=== PATIENT | male | born 1970 | race Caucasian/White ===

== ENCOUNTER 2020-07-10 18:38 | Emergency (ER) | payer OTHER ==
[2020-07-10] MEDS ORDERED: Sodium Chloride 0.9% 10 ML Syringe FLUSH PRN (19:27)
--- NOTE | 2020-07-10 19:42 | EDM.PDOC ---
ED HPI GENERAL MEDICAL PROBLEM - General Chief Complaint: General Stated Complaint: SOB/HAS A HISTORY HEART PROBLEMS Time Seen by Provider: 07/10/20 19:07 Source of Information: Reports: Patient History Limitations: Reports: No Limitations - History of Present Illness INITIAL COMMENTS - FREE TEXT/NARRATIVE: The patient presents with shortness of breath, headache, body aches, and fever. This all started about 4 days ago. He also has a slight cough. He has lost his sense of smell and taste. He has no chest pain. He has no appetite. He has generalized weakness. He has a history of RI back in 2019. He has no swelling in his legs. He has no abdominal pain, nausea, vomiting or diarrhea. He has not been tested for COVID 19 and no one he has been around as far as he knows has been sick. He does feel lightheaded at times. Onset: Gradual Duration: Day(s): (4) Location: Reports: Head, Generalized Quality: Reports: Ache Severity: Moderate Improves with: Reports: None Worsens with: Reports: None Associated Symptoms: Reports: Cough, Fever/Chills, Headaches, Shortness of Breath. Denies: Chest Pain, Nausea/Vomiting Headache Pain Score (Numeric/FACES): 7 - Related Data Allergies Allergy/AdvReac Type Severity Reaction Status Date / Time Influenza Virus Vaccines AdvReac Unknown Other Verified 07/10/20 21:32 Home Meds: Home Meds Aspirin [Aspirin EC] 81 mg PO DAILY 07/10/20 [History] Candesartan [Atacand] 4 mg PO DAILY 07/10/20 [History] Ezetimibe 10 mg PO DAILY 07/10/20 [History] Ticagrelor [Brilinta] 60 mg PO BID 07/10/20 [History] dexAMETHasone [Dexamethasone] 6 mg PO DAILY #9 tab 07/10/20 [Rx] Past Medical History HEENT History: Reports: Impaired Vision Cardiovascular History: Reports: High Cholesterol, Hypertension, [place] Musculoskeletal History: Reports: Fracture Neurological History: Reports: Other (See Below) Other Neuro History: Guillion Colona - Past Surgical History Cardiovascular Surgical History: Reports: Other (See Below) Other Cardiovascular Surgeries/Procedures: 3 stents placed in May 2018 Musculoskeletal Surgical History: Reports: Arthroscopic Knee, Other (See Below) Other Musculoskeletal Surgeries/Procedures:: Pinky Surgery Social & Family History - Tobacco Use Tobacco Use Status *Q: Never Tobacco User - Caffeine Use Caffeine Use: Reports: Coffee - Recreational Drug Use Recreational Drug Use: No ED ROS GENERAL - Review of Systems Review Of Systems: See Below Constitutional: Reports: Fever, Chills, Malaise, Weakness, Fatigue HEENT: Reports: Other (lost sense of smell and taste) Respiratory: Reports: Shortness of Breath, Cough Cardiovascular: Reports: Lightheadedness. Denies: Chest Pain Endocrine: Reports: Fatigue GI/Abdominal: Reports: No Symptoms : Reports: No Symptoms Musculoskeletal: Reports: Muscle Pain ED EXAM, GENERAL - Physical Exam Exam: See Below Exam Limited By: No Limitations General Appearance: Alert, No Apparent Distress Ears: Normal External Exam Nose: Normal Inspection Head: Atraumatic, Normocephalic Neck: Normal Inspection Respiratory/Chest: No Respiratory Distress, Lungs Clear, Normal Breath Sounds Cardiovascular: Regular Rate, Rhythm, No Edema, No Murmur GI/Abdominal: Soft, Non-Tender, No Organomegaly, No Mass Back Exam: Normal Inspection Extremities: Normal Inspection #1 Interpretation EKG Date: 07/10/20 Time: 19:06 Rhythm: NSR Rate (Beats/Min): 77 [place]: Normal P-Wave: Present QRS: Normal ST-T: Normal QT: Normal EKG Interpretation Comments: Q waves in the inferior leads Course - Vital Signs Last Recorded V/S: Last Vital Signs Temp 97.6 F 07/10/20 19:13 Pulse 58 L 07/10/20 23:15 Resp 16 07/10/20 23:15 BP 103/73 07/10/20 23:15 Pulse Ox 93 L 07/10/20 23:15 - Orders/Labs/Meds Orders: Active Orders 24 hr Category Date Time Status Cardiac Monitoring [RC] . DIRECTED Care 07/10/20 19:27 Active EKG 12 Lead [EKG Documentation Completion] [RC] ROUTINE Care 07/10/20 19:06 A ctive Oxygen Therapy [RC] PRN Care 07/10/20 19:27 Active Peripheral IV Care [RC] . DIRECTED Care 07/10/20 19:27 Active Vital Signs [RC] Q15M Care 07/10/20 20:53 Active Chest 1V Frontal [CR] Stat Exams 07/10/20 19:27 Taken EPINEPHrine [Adrenalin] Med 07/10/20 20:53 Active 0.3 mg IM ONETIME PRN Famotidine [Pepcid] Med 07/10/20 20:53 Active 20 mg IVPUSH ONETIME PRN Sodium Chloride 0.9% [Saline Flush] Med 07/10/20 19:27 Active 10 ml FLUSH ASDIRECTED PRN Sodium Chloride 0.9% [Saline Flush] Med 07/10/20 21:00 Active 30 ml FLUSH ASDIRECTED diphenhydrAMINE [Benadryl] Med 07/10/20 20:53 Active 50 mg IVPUSH ONETIME PRN methylPREDNISolone Sod Succ [Solu-MEDROL] Med 07/10/20 20:53 Active 125 mg IVPUSH ONETIME PRN Peripheral IV Insertion Adult [OM.PC] Stat Oth 07/10/20 19:27 Ordered Medication Orders Diphenhydramine HCl (Diphenhydramine 50 Mg/Ml Sdv) 50 mg IVPUSH ONETIME PRN PRN Reason: hypersensitivity reaction Epinephrine HCl (Epinephrine 1 Mg/Ml Sdv) 0.3 mg IM ONETIME PRN PRN Reason: hypersensitivity reaction Famotidine (Famotidine 20 Mg/2 Ml Sdv) 20 mg IVPUSH ONETIME PRN PRN Reason: hypersensitivity reaction Methylprednisolone Sodium Succinate (Methylprednisolone Sodium Succinate 125 Mg/2 Ml Sdv) 125 mg IVPUSH ONETIME PRN PRN Reason: hypersensitivity reaction Sodium Chloride (Sodium Chloride 0.9% 10 Ml Syringe) 10 ml FLUSH ASDIRECTED PRN PRN Reason: Keep Vein Open Last Admin: 07/10/20 19:46 Dose: 10 ml Documented by: DAVID Sodium Chloride (Sodium Chloride 0.9% 10 Ml Syringe) 30 ml FLUSH ASDIRECTED [facility] Labs: Laboratory Tests 07/10/20 07/10/20 07/10/20 Range/Units 19:25 19:25 19:25 WBC 4.53 (4.23-9.07) K/mm3 RBC 4.90 (4.63-6.08) M/mm3 Hgb 14.0 (13.7-17.5) gm/dl Hct 41.9 (40.1-51.0) % MCV 85.5 (79.0-92.2) fl MCH 28.6 (25.7-32.2) pg MCHC 33.4 (32.2-35.5) g/dl RDW Std Deviation 43.0 (35.1-43.9) fL Plt Count 205 (163-337) K/mm3 MPV 8.8 L (9.4-12.3) fl Neut % (Auto) 63.6 (34.0-67.9) % Lymph % (Auto) 26.7 (21.8-53.1) % [place] % (Auto) 9.1 (5.3-12.2) % Eos % (Auto) 0.2 L (0.8-7.0) Baso % (Auto) 0.2 (0.1-1.2) % Neut # (Auto) 2.88 (1.78-5.38) K/mm3 Lymph # (Auto) 1.21 L (1.32-3.57) K/mm3 [place] # (Auto) 0.41 (0.30-0.82) K/mm3 Eos # (Auto) 0.01 L (0.04-0.54) K/mm3 Baso # (Auto) 0.01 (0.01-0.08) K/mm3 PT 10.3 (9.7-12.0) SECONDS INR 0.96 D-Dimer, Quantitative 0.38 (0.19-0.50) mg/L Sodium 139 (136-145) mEq/L Potassium 3.8 (3.5-5.1) mEq/L Chloride 103 (98-107) mEq/L Carbon Dioxide 26 (21-32) mEq/L Anion Gap 13.8 (5-15) BUN 17 (7-18) mg/dL Creatinine 1.0 (0.7-1.3) mg/dL Est Cr Clr Drug Dosing 100.47 mL/min Estimated GFR (MDRD) > 60 (>60) mL/min BUN/Creatinine Ratio 17.0 (14-18) Glucose 110 H (70-99) mg/dL Calcium 7.7 L (8.5-10.1) mg/dL Ferritin (26-388) ng/ml Total Bilirubin 0.3 (0.2-1.0) mg/dL AST 28 (15-37) U/L ALT 43 (16-63) U/L Alkaline Phosphatase 77 (46-116) U/L Lactate Dehydrogenase 276 H (85-227) U/L Troponin I < 0.017 (0.00-0.056) ng/mL C-Reactive Protein 4.2 H* (<1.0) mg/dL NT-Pro-B Natriuret Pep (0-125) pg/mL Total Protein 7.2 (6.4-8.2) g/dl Albumin 3.3 L (3.4-5.0) g/dl Globulin 3.9 gm/dL Albumin/Globulin Ratio 0.9 L (1-2) SARS-CoV-2 RNA (ABDULAZIZ) (NEGATIVE) 07/10/20 07/10/20 07/10/20 Range/Units 19:25 19:25 19:30 WBC (4.23-9.07) K/mm3 RBC (4.63-6.08) M/mm3 Hgb (13.7-17.5) gm/dl Hct (40.1-51.0) % MCV (79.0-92.2) fl MCH (25.7-32.2) pg MCHC (32.2-35.5) g/dl RDW Std Deviation (35.1-43.9) fL Plt Count (163-337) K/mm3 MPV (9.4-12.3) fl Neut % (Auto) (34.0-67.9) % Lymph % (Auto) (21.8-53.1) % [place] % (Auto) (5.3-12.2) % Eos % (Auto) (0.8-7.0) Baso % (Auto) (0.1-1.2) % Neut # (Auto) (1.78-5.38) K/mm3 Lymph # (Auto) (1.32-3.57) K/mm3 [place] # (Auto) (0.30-0.82) K/mm3 Eos # (Auto) (0.04-0.54) K/mm3 Baso # (Auto) (0.01-0.08) K/mm3 PT (9.7-12.0) SECONDS INR D-Dimer, Quantitative (0.19-0.50) mg/L Sodium (136-145) mEq/L Potassium (3.5-5.1) mEq/L Chloride (98-107) mEq/L Carbon Dioxide (21-32) mEq/L Anion Gap (5-15) BUN (7-18) mg/dL Creatinine (0.7-1.3) mg/dL Est Cr Clr Drug Dosing mL/min Estimated GFR (MDRD) (>60) mL/min BUN/Creatinine Ratio (14-18) Glucose (70-99) mg/dL Calcium (8.5-10.1) mg/dL Ferritin 223 (26-388) ng/ml Total Bilirubin (0.2-1.0) mg/dL AST (15-37) U/L ALT (16-63) U/L Alkaline Phosphatase (46-116) U/L Lactate Dehydrogenase (85-227) U/L Troponin I (0.00-0.056) ng/mL C-Reactive Protein (<1.0) mg/dL NT-Pro-B Natriuret Pep 103 (0-125) pg/mL Total Protein (6.4-8.2) g/dl Albumin (3.4-5.0) g/dl Globulin gm/dL Albumin/Globulin Ratio (1-2) SARS-CoV-2 RNA (ABDULAZIZ) Positive H (NEGATIVE) Meds: Medications Generic Name Dose Route Start Last Admin Trade Name Freq PRN Reason Stop Dose Admin Diphenhydramine HCl 50 mg 07/10/20 20:53 Diphenhydramine 50 Mg/Ml Sdv IVPUSH ONETIME PRN hypersensitivity reaction Epinephrine HCl 0.3 mg 07/10/20 20:53 Epinephrine 1 Mg/Ml Sdv IM ONETIME PRN hypersensitivity reaction Famotidine 20 mg 07/10/20 20:53 Famotidine 20 Mg/2 Ml Sdv IVPUSH ONETIME PRN hypersensitivity reaction Methylprednisolone Sodium Succinate 125 mg 07/10/20 20:53 Methylprednisolone Sodium Succinate 125 Mg/2 Ml Sdv IVPUSH ONETIME PRN hypersensitivity reaction Sodium Chloride 10 ml 07/10/20 19:27 07/10/20 19:46 Sodium Chloride 0.9% 10 Ml Syringe FLUSH 10 ml ASDIRECTED PRN Administration Keep Vein Open Sodium Chloride 30 ml 07/10/20 21:00 Sodium Chloride 0.9% 10 Ml Syringe FLUSH ASDIRECTED VIVIAN Discontinued Medications Generic Name Dose Route Start Last Admin Trade Name Freq PRN Reason Stop Dose Admin Dexamethasone 6 mg 07/10/20 20:53 07/10/20 21:14 Dexamethasone 4 Mg/Ml Sdv IVPUSH 07/10/20 20:54 6 mg ONETIME ONE Administration Sodium Chloride 1,000 mls @ 1,000 mls/hr 07/10/20 20:53 07/10/20 21:13 Normal Saline IV 07/10/20 21:52 1,000 mls/hr ONETIME ONE Administration Bamlanivimab 700 mg/ 310 mls @ 310 mls/hr 07/10/20 20:53 07/10/20 21:59 Etesevimab 1,400 mg/ Sodium IV 07/10/20 21:52 310 mls/hr Chloride ONETIME ONE Administration Ketorolac Tromethamine 30 mg 07/10/20 20:54 07/10/20 21:16 Ketorolac 30 Mg/Ml Sdv IVPUSH 07/10/20 20:55 30 mg ONETIME ONE Administration - Re-Assessments/Exams Free Text/Narrative Re-Assessment/Exam: 07/10/20 19:41 I ordered oxygen as needed, CXR, EKG, labs and COVID 19 test. His EKG shows a N SR with no acute changes. 07/10/20 23:40 His CXR looked good. His CBC and CMP looked good. His D-dimer was negative. His troponin was negative. His LDH was elevated at 276. His CRP was elevated a t 4.2. He is a candidate for the bamlanivimab and etesevimab. I talked to the patient about those options. He still had a headache so I ordered toradol 30mg IV. I spoke with the patient to provide information about bamlanivimab/etesevimab treatment. I offered them the Patient and Caregiver EUA Bamlanivimab Fact Sheet to read and review. I stated the drug has been approved by an emergency use authorization (EUA} process and has not fully been FDA reviewed or approved. The patient meets the EUA requirements. I discussed there are other potential treatment options that are currently not FDA approved to treat COVID 19. Offered opportunity to ask questions and all questions were answered. The patient voiced understanding and agreed to proceed with treatment. The patient agreed to the infusion. I ordered that and some dexamethasone 6mg IV. Departure - Departure Time of Disposition: 23:45 Disposition: Home, Self-Care 01 Condition: Good Clinical Impression: COVID-19 - Discharge Information *PRESCRIPTION DRUG MONITORING PROGRAM REVIEWED*: Not Applicable *COPY OF PRESCRIPTION DRUG MONITORING REPORT IN PATIENT SANJEEV: Not Applicable Prescriptions: dexAMETHasone [Dexamethasone] 6 mg PO DAILY #9 tab Referrals: PCP,None [Primary Care Provider] - Forms: ED Department Discharge Additional Instructions: Take the dexamethasone 1.5 pills daily for 9 days. Take tylenol or motrin for any fever or pain. Follow up with your doctor within a week. Please return if you are worse. Sepsis Event Note (ED) - Evaluation Sepsis Screening Result: No Definite Risk - Focused Exam Vital Signs: Vital Signs Temp Pulse Resp BP Pulse Ox 07/10/20 23:15 58 L 16 103/73 93 L 07/10/20 23:00 61 16 110/71 95 07/10/20 22:45 65 18 104/66 94 L 07/10/20 22:30 64 18 109/69 94 L 07/10/20 22:15 66 16 107/70 95 07/10/20 22:00 64 16 110/70 95 07/10/20 21:45 68 16 119/77 94 L 07/10/20 21:30 70 16 119/84 95 07/10/20 21:15 68 16 119/94 H 98 07/10/20 21:08 70 16 118/67 96 07/10/20 20:53 65 18 107/70 94 L 07/10/20 19:13 97.6 F 77 16 122/75 96 - My Orders Last 24 Hours: My Active Orders 07/10/20 19:06 EKG 12 Lead [EKG Documentation Completion] [RC] ROUTINE 07/10/20 19:27 Cardiac Monitoring [RC] . DIRECTED Oxygen Therapy [RC] PRN Peripheral IV Care [RC] . DIRECTED Chest 1V Frontal [CR] Stat Sodium Chloride 0.9% [Saline Flush] 10 ml FLUSH ASDIRECTED PRN Peripheral IV Insertion Adult [OM.PC] Stat 07/10/20 20:53 Vital Signs [RC] Q15M EPINEPHrine [Adrenalin] 0.3 mg IM ONETIME PRN Famotidine [Pepcid] 20 mg IVPUSH ONETIME PRN diphenhydrAMINE [Benadryl] 50 mg IVPUSH ONETIME PRN methylPREDNISolone Sod Succ [Solu-MEDROL] 125 mg IVPUSH ONETIME PRN 07/10/20 21:00 Sodium Chloride 0.9% [Saline Flush] 30 ml FLUSH ASDIRECTED - Assessment/Plan Last 24 Hours: My Active Orders 07/10/20 19:06 EKG 12 Lead [EKG Documentation Completion] [RC] ROUTINE 07/10/20 19:27 Cardiac Monitoring [RC] . DIRECTED Oxygen Therapy [RC] PRN Peripheral IV Care [RC] . DIRECTED Chest 1V Frontal [CR] Stat Sodium Chloride 0.9% [Saline Flush] 10 ml FLUSH ASDIRECTED PRN Peripheral IV Insertion Adult [OM.PC] Stat 07/10/20 20:53 Vital Signs [RC] Q15M EPINEPHrine [Adrenalin] 0.3 mg IM ONETIME PRN Famotidine [Pepcid] 20 mg IVPUSH ONETIME PRN diphenhydrAMINE [Benadryl] 50 mg IVPUSH ONETIME PRN methylPREDNISolone Sod Succ [Solu-MEDROL] 125 mg IVPUSH ONETIME PRN 07/10/20 21:00 Sodium Chloride 0.9% [Saline Flush] 30 ml FLUSH ASDIRECTED
[2020-07-10] MEDS ORDERED: Famotidine 20 MG/2 ML SDV IVPUSH PRN (20:53)
[2020-07-10] MEDS ORDERED: diphenhydrAMINE 50 MG/ML SDV IVPUSH PRN (20:53)
[2020-07-10] MEDS ORDERED: EPINEPHrine 1 MG/ML SDV IM PRN (20:53)
[2020-07-10] MEDS ORDERED: methylPREDNISolone Sodium Succinate 125 MG/2 ML SDV IVPUSH PRN (20:53)
[2020-07-10] MEDS ORDERED: Dexamethasone 4 MG/ML SDV IVPUSH ONE (20:53)
[2020-07-10] MEDS ORDERED: Sodium Chloride 0.9% 1,000 ML IV ONE (20:53)
[2020-07-10] MEDS ORDERED: Ketorolac 30 MG/ML SDV IVPUSH ONE (20:54)
[2020-07-10] MEDS ORDERED: Sodium Chloride 0.9% 10 ML Syringe FLUSH SCH (21:00)
--- NOTE | 2020-07-14 13:36 | CR ---
Chest: Portable view of the chest was obtained. Comparison: No prior chest imaging is available. Heart size and mediastinum are normal. Lungs are clear with no acute parenchymal change. Bony structure shows nothing acute. Impression: 1. Nothing acute is seen on portable chest x-ray. Diagnostic code #1
== END 2020-07-11 00:10 | disposition home or self-care (01) ==
LOC: JD.ED 18:38
DX: U07.1 COVID-19 (principal); I10 Essential (primary) hypertension; I25.2 Old myocardial infarction; Z79.82 Long term (current) use of aspirin; Z79.02 Long term (current) use of antithrombotics/antiplatelets; Z88.7 Allergy status to serum and vaccine
CPT/HCPCS: 36415; 71045; 80053; 82728; 83615; 83880; 84484; 85025; 85379; 85610; 86140; 87635; 93005; 96374; 96375; 99285; J1100; J1885; J7030; J7050; M0245; Q0245; 93010; 99284; U0002

== ENCOUNTER 2021-02-08 00:41 | Emergency (ER) | payer OTHER ==
[2021-02-08] MEDS ORDERED: Sodium Chloride 0.9% 10 ML Syringe FLUSH PRN (00:48)
--- NOTE | 2021-02-08 06:17 | EDM.PDOC ---
ED HPI GENERAL MEDICAL PROBLEM - General Chief Complaint: Chest Pain Stated Complaint: [facility] Time Seen by Provider: 02/08/21 05:51 Source of Information: Reports: Patient, Family (Daughter) History Limitations: Reports: No Limitations - History of Present Illness INITIAL COMMENTS - FREE TEXT/NARRATIVE: Mr. Díaz is a very pleasant 50-year-old gentleman who now presents to the ED by EMS with a complaint of retrosternal tightness that began around 23:10 after moving a large desk up some stairs around 23:00. He states that the sensation is a pain, not a discomfort, and he has not identified any modifiers. He states that he took 2 sublingual nitroglycerin around 2340, which did not provide immediate relief. The pain resolved just after arrival to the ED, about 35 minutes later. When he experienced the pain, he felt diaphoretic, but denies having associated dyspnea, nausea, or sense of impending doom. The patient has a history of coronary artery disease, status post a single GA on 06/13/2018. When that occurred, he states that he felt a tightness in both of his shoulders and on both sides of his neck, and later felt a tightness in his chest. He had associated nausea and diaphoresis, but no dyspnea. He acknowledges that carine's symptoms are different than the symptoms he experienced when he had an GA. The patient's last cardiac stress test was in 2019, which he passed. At triage, the patient was found to be hemodynamically stable, afebrile, saturating 93% on room air. He appears to be comfortable, no acute distress. Prior to the onset of tonight's pain, the patient denies having a recent fever, chills, sore throat, ear pain, nasal or sinus congestion, cough, dyspnea, chest pain, palpitations, nausea, vomiting, constipation, diarrhea, abdominal pain, urinary symptoms, recent weight gain or weight loss, recent bloody bowel movements or black bowel movements, recent joint aches, headaches, or rashes. The patient's PCP is Mary Page, in [place]. His Door Hanger is Dr. Edward Stewart. He has received 2 Moderna COVID vaccinations, although no influenza vaccination this season. Chest Pain Score (Numeric/FACES): 3 - Related Data Allergies Allergy/AdvReac Type Severity Reaction Status Date / Time Influenza Virus Vaccines AdvReac Unknown Other Verified 07/10/20 21:32 Home Meds: Home Meds Aspirin [Aspirin EC] 81 mg PO DAILY 07/10/20 [History] Candesartan [Atacand] 4 mg PO DAILY 07/10/20 [History] Ezetimibe 10 mg PO DAILY 07/10/20 [History] Ticagrelor [Brilinta] 60 mg PO BID 07/10/20 [History] dexAMETHasone [Dexamethasone] 6 mg PO DAILY #9 tab 07/10/20 [Rx] Past Medical History HEENT History: Reports: Impaired Vision Cardiovascular History: Reports: CAD, High Cholesterol, Hypertension, GA (x 1, 06/13/2018) Musculoskeletal History: Reports: Fracture 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) - Infectious Disease History Infectious Disease History: Reports: Novel Coronavirus (dx'd 07/10/2020) - Past Surgical History Cardiovascular Surgical History: Reports: Coronary Artery Stent (x 3 (2 + 1) May 2018), Other (See Below) (2 coronary angiograms May 2018) Musculoskeletal Surgical History: Reports: Arthroscopic Knee (right), Other (See Below) (Right 5th finger reattachment) Social & Family History - Tobacco Use Tobacco Use Status *Q: Never Tobacco User - Caffeine Use Caffeine Use: Reports: Coffee - Alcohol Use Alcohol Use History: Yes Date/Time of Last Drink Comment: None since 2016 - Recreational Drug Use Recreational Drug Use: No - Living Situation & Occupation Living situation: Reports: , with Spouse, with Family (4 kids) Occupation: Employed ([employer]) ED ROS GENERAL - Review of Systems Review Of Systems: Comprehensive ROS is negative, except as noted in HPI. ED EXAM, GENERAL - Physical Exam Exam: See Below Exam Limited By: No Limitations General Appearance: Alert, WD/WN, No Apparent Distress Eye Exam: Bilateral Eye: EOMI, Normal Inspection Ears: Normal External Exam, Hearing Grossly Normal Nose: Normal Inspection Throat/Mouth: Normal Inspection, Normal Lips, Normal Voice, No Airway Compromise Head: Atraumatic, Normocephalic Neck: Normal Inspection, Full Range of Motion Respiratory/Chest: No Respiratory Distress, Lungs Clear, Normal Breath Sounds, No Accessory Muscle Use, Other (Reproducible tenderness to palpation of the sternum. Pain is also reproduced with having the patient press his hands together with outstretched arms low in front of him.) Cardiovascular: Normal Peripheral Pulses, Regular Rate, Rhythm, No Edema, No Gallop, No JVD, No Murmur, No Rub Peripheral Pulses: 3+: Radial (L), Radial (R) GI/Abdominal: Normal Bowel Sounds, Soft, Non-Tender, No Organomegaly, No Distention, No Abnormal Bruit, No Mass Back Exam: Normal Inspection, Full Range of Motion, NT Extremities: Normal Inspection, Normal Range of Motion, No Pedal Edema, Normal Capillary Refill Neurological: Alert, Oriented, Normal Cognition, No Motor/Sensory Deficits Psychiatric: Normal Affect Skin Exam: Warm, Dry, Intact, Normal Color, No Rash #1 Interpretation EKG Date: 02/08/21 Time: 00:56 Rhythm: NSR Rate (Beats/Min): 64 [place]: 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) P-Wave: Present QRS: Normal ST-T: Normal QT: Normal Comparison: No Change (07/10/2020) Course - Vital Signs Last Recorded V/S: Last Vital Signs Temp 36.5 C 02/08/21 08:24 Pulse 65 02/08/21 00:56 Resp 18 02/08/21 08:24 BP 109/76 02/08/21 08:24 Pulse Ox 93 L 02/08/21 00:56 - Orders/Labs/Meds Labs: Laboratory Tests 02/08/21 02/08/21 02/08/21 Range/Units 00:49 00:49 00:49 WBC 8.37 (4.23-9.07) K/mm3 RBC 4.99 (4.63-6.08) M/mm3 Hgb 14.4 (13.7-17.5) gm/dl Hct 43.7 (40.1-51.0) % MCV 87.6 (79.0-92.2) fl MCH 28.9 (25.7-32.2) pg MCHC 33.0 (32.2-35.5) g/dl RDW Std Deviation 41.9 (35.1-43.9) fL Plt Count 247 (163-337) K/mm3 MPV 8.8 L (9.4-12.3) fl Neut % (Auto) 73.6 H (34.0-67.9) % Lymph % (Auto) 17.7 L (21.8-53.1) % [place] % (Auto) 7.4 (5.3-12.2) % Eos % (Auto) 1.1 (0.8-7.0) Baso % (Auto) 0.1 (0.1-1.2) % Neut # (Auto) 6.16 H (1.78-5.38) K/mm3 Lymph # (Auto) 1.48 (1.32-3.57) K/mm3 [place] # (Auto) 0.62 (0.30-0.82) K/mm3 Eos # (Auto) 0.09 (0.04-0.54) K/mm3 Baso # (Auto) 0.01 (0.01-0.08) K/mm3 PT 10.5 (9.7-12.0) SECONDS INR 0.94 D-Dimer, Quantitative < 0.19 L (0.19-0.50) mg/L Sodium 139 (136-145) mEq/L Potassium 4.0 (3.5-5.1) mEq/L Chloride 105 (98-107) mEq/L Carbon Dioxide 26 (21-32) mEq/L Anion Gap 12.0 (5-15) BUN 18 (7-18) mg/dL Creatinine 1.0 (0.7-1.3) mg/dL Est Cr Clr Drug Dosing 100.47 mL/min Estimated GFR (MDRD) > 60 (>60) mL/min BUN/Creatinine Ratio 18.0 (14-18) Glucose 117 H (70-99) mg/dL Calcium 8.3 L (8.5-10.1) mg/dL Magnesium 2.1 (1.8-2.4) mg/dL Total Bilirubin 0.3 (0.2-1.0) mg/dL AST 22 (15-37) U/L ALT 46 (16-63) U/L Alkaline Phosphatase 70 (46-116) U/L Troponin I < 0.017 (0.00-0.056) ng/mL Total Protein 7.0 (6.4-8.2) g/dl Albumin 4.0 (3.4-5.0) g/dl Globulin 3.0 gm/dL Albumin/Globulin Ratio 1.3 (1-2) 12/19/21 Range/Units 06:25 WBC (4.23-9.07) K/mm3 RBC (4.63-6.08) M/mm3 Hgb (13.7-17.5) gm/dl Hct (40.1-51.0) % MCV (79.0-92.2) fl MCH (25.7-32.2) pg MCHC (32.2-35.5) g/dl RDW Std Deviation (35.1-43.9) fL Plt Count (163-337) K/mm3 MPV (9.4-12.3) fl Neut % (Auto) (34.0-67.9) % Lymph % (Auto) (21.8-53.1) % [place] % (Auto) (5.3-12.2) % Eos % (Auto) (0.8-7.0) Baso % (Auto) (0.1-1.2) % Neut # (Auto) (1.78-5.38) K/mm3 Lymph # (Auto) (1.32-3.57) K/mm3 [place] # (Auto) (0.30-0.82) K/mm3 Eos # (Auto) (0.04-0.54) K/mm3 Baso # (Auto) (0.01-0.08) K/mm3 PT (9.7-12.0) SECONDS INR D-Dimer, Quantitative (0.19-0.50) mg/L Sodium (136-145) mEq/L Potassium (3.5-5.1) mEq/L Chloride (98-107) mEq/L Carbon Dioxide (21-32) mEq/L Anion Gap (5-15) BUN (7-18) mg/dL Creatinine (0.7-1.3) mg/dL Est Cr Clr Drug Dosing mL/min Estimated GFR (MDRD) (>60) mL/min BUN/Creatinine Ratio (14-18) Glucose (70-99) mg/dL Calcium (8.5-10.1) mg/dL Magnesium (1.8-2.4) mg/dL Total Bilirubin (0.2-1.0) mg/dL AST (15-37) U/L ALT (16-63) U/L Alkaline Phosphatase (46-116) U/L Troponin I < 0.017 (0.00-0.056) ng/mL Total Protein (6.4-8.2) g/dl Albumin (3.4-5.0) g/dl Globulin gm/dL Albumin/Globulin Ratio (1-2) Meds: Medications Discontinued Medications Generic Name Dose Route Start Last Admin Trade Name Stefani PRN Reason Stop Dose Admin Acetaminophen 650 mg 02/08/21 08:04 02/08/21 08:17 Acetaminophen 325 Mg Tab PO 02/08/21 08:05 650 mg NOW ONE Administration Sodium Chloride 10 ml 02/08/21 00:48 02/08/21 00:54 Sodium Chloride 0.9% 10 Ml Syringe FLUSH 10 ml ASDIRECTED PRN Administration Keep Vein Open - Re-Assessments/Exams Free Text/Narrative Re-Assessment/Exam: 02/08/21 06:13 Several blood tests, a portable chest x-ray, and an ECG were obtained at triage. His ECG is grossly unremarkable. Portable chest radiograph appears to be grossly normal. The cardiac silhouette is within normal limits. No pulmonary vascular congestion. No pleural effusions seen on this AP view. No focal infiltrate. No pneumothorax. Formal read per the Radiologist pending. The patient's CBC is unremarkable. His CMP is remarkable for slight hyperglycemia of 117, and is otherwise unremarkable. His magnesium level is within normal limits at 2.1. His troponin is undetectably low. His D-dimer is undetectably low. His INR is within normal limits. I have ordered a repeat troponin to be obtained now. 02/08/21 08:01 The patient's repeat troponin is still undetectably low. 02/08/21 08:04 Test results discussed with the patient. His pain appears to be musculoskeletal in etiology. He prefers acetaminophen as an analgesic. I will discharge him home. Departure - Departure Time of Disposition: 08:06 Disposition: Home, Self-Care 01 Condition: Good Clinical Impression: Musculoskeletal chest pain - Discharge Information *PRESCRIPTION DRUG MONITORING PROGRAM REVIEWED*: Not Applicable *COPY OF PRESCRIPTION DRUG MONITORING REPORT IN PATIENT SANJEEV: Not Applicable Instructions: Nonspecific Chest Pain, Adult, [id number] Referrals: PCP,Not In Area [Ordering Only Provider] - Edward Stewart MD [Ordering Only Provider] - Forms: ED Department Discharge Additional Instructions: You were seen in the emergency room after developing central chest pain and sweatiness. Work-up in the ER included numerous blood tests, a chest x-ray, and an ECG. Your entire work-up was unremarkable. You have not suffered a heart attack. You do not have a blood clot in your lungs. You do not have pneumonia. You do not have a collapsed lung. Based on your history, physical exam, and ER tests, your chest pain is most likely musculoskeletal in etiology. We recommend that you take [id number] acetaminophen (Tylenol), 650 mg up to every 4 hours, as needed for discomfort. If any other problems, please do not hesitate to return to the ER. Sepsis Event Note (ED) - Evaluation Sepsis Screening Result: No Definite Risk
[2021-02-08] MEDS ORDERED: Acetaminophen 325 MG Tab PO ONE (08:04)
--- NOTE | 2021-02-08 09:01 | CR ---
Chest: Frontal view of the chest was obtained. Comparison: Prior chest x-ray of 07/10/20. Heart size and mediastinum are normal. Minimal atelectasis is seen within the left lung base. Lungs otherwise are clear. Bony structures show nothing acute. Impression: 1. Slight left basilar atelectasis. 2. Nothing acute is otherwise seen on frontal chest x-ray. Diagnostic code #2
== END 2021-02-08 08:26 | disposition home or self-care (01) ==
LOC: JD.ED 00:41
DX: R07.89 Other chest pain (principal); I44.4 Left anterior fascicular block; I25.10 Atherosclerotic heart disease of native coronary artery without angina pectoris; I10 Essential (primary) hypertension; I25.2 Old myocardial infarction; Z88.7 Allergy status to serum and vaccine; Z79.82 Long term (current) use of aspirin; Z79.899 Other long term (current) drug therapy
CPT/HCPCS: 36415; 71045; 80053; 83735; 84484; 85025; 85379; 85610; 93005; 99285; A9270